=== PATIENT | male | born 2000 | race Hispanic/Latino ===

== ENCOUNTER 2019-10-04 11:07 | Emergency (ER) | payer MEDICAID, OTHER ==
[2019-10-04] MEDS ORDERED: ONDANSETRON HCL 4 MG/2 ML VIAL ONE (11:28)
[2019-10-04] MEDS ORDERED: SODIUM CHLORIDE 0.9% 1000ML 1,000 ML IV ONE ×2 (11:28→12:06)
[2019-10-04 11:35] LABS: BASOPHILS % (AUTO) 0.6 % (0.0-5.0); HEMATOCRIT 45.1 % (42-54); LYMPHOCYTES % (AUTO) 17.6 % (21.0-51.0); MEAN CORPUSCULAR HEMOGLOBIN 28.7 pg (27.0-33.0); MEAN CORPUSCULAR HGB CONC 33.9 g/dL (32.0-36.0); MEAN CORPUSCULAR VOLUME 84.6 fL (80-100); MONOCYTES % (AUTO) 6.4 % (3.0-13.0); NEUTROPHILS % (AUTO) 75.4 % (40.0-77.0); NUCLEATED RED BLOOD CELLS 0.1 % (0.0-0.19); PLATELET COUNT (AUTO) 129 K/uL (130-400); RED BLOOD CELL COUNT(AUTO) 5.33 MIL/uL (4.50-6.20); RED CELL DISTRIBUTION WIDTH 13.5 % (11.0-15.5); WHITE BLOOD COUNT (AUTO) 6.8 K/uL (4.8-10.8)
[2019-10-04 11:47] LABS: POTASSIUM 3.3 mmol/L (3.5-5.1)
[2019-10-04 11:52] LABS: ALBUMIN 3.4 g/dL (3.5-5.0); BILIRUBIN,TOTAL 0.4 mg/dL (0.2-1.0); TOTAL PROTEIN, SERUM 7.4 g/dL (6.0-8.3)
[2019-10-04 12:43] LABS: APPEARANCE,URINE Cloudy (CLEAR); BILIRUBIN,URINE Negative (NEGATIVE); COLOR,URINE Dark Yellow (YELLOW); GLUCOSE, URINE (UA) Negative (NEGATIVE); KETONES,URINE Trace mg/dL (NEGATIVE); LEUKOCYTE ESTERASE ,URINE Negative (NEGATIVE); NITRATE,URINE Negative (NEGATIVE); OCCULT BLOOD,URINE Negative (NEGATIVE); PH,URINE 5.5 (5.0-8.0); PROTEIN,URINE POS 1+ mg/dL (NEGATIVE)
[2019-10-04 13:17] LABS: BACTERIA,URINE Few /HPF (None Seen); MUCUS,URINE Moderate LPF (None Seen); RBC,URINE None Seen /HPF (0-1); SQUAMOUS EPITHELIAL CELL,UR Few /HPF (0-2); WBC,URINE None Seen /HPF (0-1)
== END 2019-10-04 13:44 | disposition home or self-care (01) ==
LOC: EDH 11:07
DX: E86.0 Dehydration (principal); K52.9 Noninfective gastroenteritis and colitis, unspecified; E87.6 Hypokalemia; Z90.49 Acquired absence of other specified parts of digestive tract; Z87.891 Personal history of nicotine dependence
CPT/HCPCS: 36415; 80053; 81001; 82150; 82270; 83630; 85025; 87046; 87177; 87804 ×2; 96361; 96374; 99285; J2405; J7030 ×2

== ENCOUNTER 2024-11-28 10:15 | Emergency (ER) | payer SELFPAY ==
[~2024-11-28] VITALS: Ht 172.7 cm; Wt 176.9 kg
[2024-11-28 11:23] LABS: APPEARANCE,URINE CLEAR (CLEAR); BILIRUBIN,URINE NEGATIVE (NEGATIVE); COLOR,URINE LIGHT-YELLOW (YELLOW); GLUCOSE, URINE (UA) >=1000 mg/dL (NEGATIVE); KETONES,URINE 10 mg/dL (NEGATIVE); LEUKOCYTE ESTERASE ,URINE 25 Leu/uL (NEGATIVE); NITRATE,URINE NEGATIVE (NEGATIVE); OCCULT BLOOD,URINE NEGATIVE (NEGATIVE); PROTEIN,URINE 10 mg/dL (NEGATIVE); UROBILINOGEN,URINE 0.2 mg/dL (0.2-1.0)
[2024-11-28] MEDS ORDERED: CLOT15CR23 TP (11:28)
[2024-11-28] MEDS ORDERED: MUPI22OI2 TP (11:28)
--- NOTE | 2024-11-28 11:28 | ERN ---
General Chief Complaint: Penis Problem Stated Complaint: ABCESS Time Seen by MD: 10:17 Time Seen by Midlevel: 10:17 Source: patient History of Present Illness Initial Comments Patient is a morbidly obese 24-year-old male presenting to the emergency department with swelling and redness to his penis that he noticed this morning after waking up. Denies any other symptoms at this time. Denies being sexually active. Denies any concern for sexually transmitted disease at this time. Home Meds Active Scripts Levofloxacin (Levaquin 750Mg Tabs) 750 Mg Tablet, 750 MG PO DAILY for 7 Days, #7 TAB 0 Refills Prov:ANGELITA FULTON 11/28/24 Mupirocin (Mupirocin Ointment) 2 % Oint, 1 APPL TP BID for 5 Days, #15 GM 0 Refills apply to affected area(s) Prov:ANGELITA FULTON 11/28/24 Clotrimazole (Clotrimazole) 1 % Cream..g., 1 APPL TP BID for 7 Days, #30 GM 0 Refills apply to affected area(s) Prov:ANGELITA FULTON 11/28/24 Past Medical History Past Medical History: No Pertinent History Past Surgical History: Appendectomy ROS Dictation CONSTITUTIONAL: Negative except for HPI HEAD/FACE: Negative except for HPI EENT: Negative except for HPI RESPIRATORY: Negative except for HPI GASTROINTESTINAL/ABDOMINAL: Negative except for HPI GENITOURINARY: Negative except for HPI MUSCULOSKELETAL: Negative except for HPI INTEGUMENTARY: Negative except for HPI NEUROLOGICAL/PSYCH: Negative except for HPI HEMATOLOGIC/LYMPHATIC: Negative except for HPI All Systems Negative, Except as noted above. 13 point review of systems assessed and all negative except for above. Physical Exam Physical Exam Dictation Vital Signs reviewed General Appearance: Alert, oriented x 3, no acute distress, well developed, nourished. Head and Face: non-traumatic. Eyes: PERRL, pink conjunctivas, eyelid no trauma, anterior chamber with arcus senilis. Ears: Pinnas intact and no signs of trauma or erythema ear canals clear and no discharge TM no erythema Nose: No discharge, no bleeding. Oropharynx: Mouth normal, tongue pink, pharynx clear,no erythema, tonsils no exudates, no abscesses noted, mucous membrane moist Neck: Supple, non-tender, no thyromegaly, no masses, no JVD, no bruits Breast:Deferred Chest:No tenderness, no crepitus, no paradoxical movement, no retractions Lungs:Clear, well-ventilated, symmetric, no rales, no wheezing, no rhonchi, no stridor, good breath sounds bilaterally Heart: Regular rate, regular rhythm, no murmur, no gallops Vascular: no peripheral edema, Abdomen: Soft, positive bowel sounds, nondistended, no guarding, nontender, no rebound, no masses no hepatomegaly, no splenomegaly, no Salomon's sign, no hernias. Rectal: Deferred Genital: Genital examination performed with RN at bedside. There is erythema to the glans of the penis Neurological: Normal speech, motor function intact, sensory function intact Musculoskeletal: Neck nontender, full range of motion, back nontender, full range of motion, Extremities: nontender, full range of motion Skin: Color pink, dry, no turgor, no rash, no lacerations, no abrasions, no contusions. Lymphatic: Deferred Results Laboratory and Microbiology Lab and Micro Result Laboratory Tests Test 11/28/24 10:51 Urine Color LIGHT-YELLOW (YELLOW) Urine Appearance CLEAR (CLEAR) Urine pH 6.0 (5.0-8.0) Urine Specific Given 1.037 (1.001-1.031) Urine Protein 10 mg/dL (NEGATIVE) H Urine Glucose (UA) >=1000 mg/dL (NEGATIVE) H Urine Ketones 10 mg/dL (NEGATIVE) H Urine Occult Blood NEGATIVE (NEGATIVE) Urine Nitrate NEGATIVE (NEGATIVE) Urine Bilirubin NEGATIVE mg/dL (NEGATIVE) Urine Urobilinogen 0.2 mg/dL (0.2-1.0) Urine Leukocyte Esterase 25 Chan/uL (NEGATIVE) H Urine RBC 2-5 /HPF (0-1) H Urine WBC 2-5 /HPF (0-1) H Urine Squamous Epithelial Cells FEW /HPF (0-2) Urine Bacteria RARE /HPF (None Seen) Labs Reviewed?: Yes MDM MDM: Differential diagnosis: Balanitis, urinary tract infection, sexually somers smitted disease There are no social concerns with this patient. Prescription drug management Prescriptions will include: Clotrimazole, mupirocin, Levaquin Medical management and examination interpretation discussions were had by me with other qualified healthcare professionals as indicated for the patient's care. ED Course Orders Procedure Category Date Status Time Urinalysis Profile LAB 11/28/24 Complete 10:44 Vital Signs Date Time Temp Pulse Resp B/P (MAP) Pulse Ox O2 Delivery O2 Flow Rate FiO2 11/28/24 10:26 99.7 66 20 112/74 99 Room Air 0 DX & DISP Disposition: Discharge Departure Impression: Primary Impression: Balanitis Additional Impression: Urinary tract infection Condition: Stable Scripts Levofloxacin (Levaquin 750Mg Tabs) 750 Mg Tablet 750 MG PO DAILY for 7 Days, #7 TAB 0 Refills Prov: ANGELITA FULTON 11/28/24 Mupirocin (Mupirocin Ointment) 2 % Oint 1 APPL TP BID for 5 Days, #15 GM 0 Refills apply to affected area(s) Prov: ANGELITA FULTON 11/28/24 Clotrimazole (Clotrimazole) 1 % Cream..g. 1 APPL TP BID for 7 Days, #30 GM 0 Refills apply to affected area(s) Prov: ANGELITA FULTON 11/28/24 Additional Instructions: Your urinalysis shows evidence of infection. I have given you a prescription for oral antibiotics for outpatient. Your urinalysis also shows sugar in your urine. This may indicate diabetes. Please follow up with your primary care doctor so they can rule out diabetes. I have given you a prescription for mupirocin and clotrimazole which should help improve your symptoms over the next couple of days. Follow up with your primary care doctor in 2-3 days for repeat evaluation. Return to the ER for any new or worsening symptoms Referrals: SELF,REFERRAL (PCP) I have reviewed the case, and I agree with, Diagnosis and Plan I performed the substantive portion of the visit. I have reviewed and personally made and approve the management plan that is documented in the note by myself or the KYLIE. I acknowledge for responsibility for the patient's managem ent plan. ANGELITA FULTON Nov 28, 2024 11:28
[2024-11-28 11:32] LABS: ADD UA MICROSCOPIC YES
[2024-11-28 11:34] LABS: BACTERIA,URINE RARE /HPF (None Seen); SQUAMOUS EPITHELIAL CELL,UR FEW /HPF (0-2)
[2024-11-28] MEDS ORDERED: LEVO750T68 PO (11:44)
[2024-11-28 11:58] VITALS: BP 118/72; PULSE 68; RESP 18; TEMP 99; O2SAT 98
== END 2024-11-28 12:10 | disposition home or self-care (01) ==
LOC: EDH 10:15
DX: N48.1 Balanitis (principal); N39.0 Urinary tract infection, site not specified; E66.01 Morbid (severe) obesity due to excess calories; Z90.49 Acquired absence of other specified parts of digestive tract; Z68.43 Body mass index [BMI] 50.0-59.9, adult; Z79.899 Other long term (current) drug therapy
CPT/HCPCS: 81001; 99283

== ENCOUNTER 2025-01-30 12:28 | Emergency (ER) | payer SELFPAY ==
[~2025-01-30] VITALS: Ht 167.6 cm; Wt 146.1 kg
[~2025-01-30 12:28] MED LIST: CLOT15CR23 TP; LEVO750T68 PO; MUPI22OI2 TP
[2025-01-30] MEDS ORDERED: CLIN-141 PO (12:37)
[2025-01-30] MEDS ORDERED: IBUP-2077 PO (12:37)
--- NOTE | 2025-01-30 12:38 | ERN ---
ED Note History of Present Illness Stated Complaint: ABSCESS Chief Complaint: Abscess Time Seen by MD: 12:30 Dictation: PATIENT IS A 24-YEAR-OLD MALE HERE WITH COMPLAINTS OF PAINFUL ERYTHEMA WITH TENDERNESS TO THE LEFT LATERAL CHEST AREA ONSET THREE DAYS PRIOR TO ARRIVAL NO FEVER NO CHILLS NO NAUSEA VOMITING. DENIES HISTORY OF DIABETES DOES NOT HAVE A PRIMARY CARE DOCTOR AND HAS TAKEN NOTHING TODAY PRIOR TO ARRIVAL FOR PAIN Allergies: Coded Allergies: No Known Allergies (Unverified Allergy, Unknown, 01/30/25) Home Meds Active Scripts Levofloxacin (Levaquin 750Mg Tabs) 750 Mg Tablet, 750 MG PO DAILY for 7 Days, #7 TAB 0 Refills Prov:ANGELITA FULTON 11/28/24 Mupirocin (Mupirocin Ointment) 2 % Oint, 1 APPL TP BID for 5 Days, #15 GM 0 Refills apply to affected area(s) Prov:ANGELITA FULTON 11/28/24 Clotrimazole (Clotrimazole) 1 % Cream..g., 1 APPL TP BID for 7 Days, #30 GM 0 Refills apply to affected area(s) Prov:ANGELITA FULTON 11/28/24 Past Medical History Past Medical History: No Pertinent History Surgical History: Appendectomy RN Note Reviewed/Agreed w/PFSH: Yes Review of System Dictation CONSTITUTIONAL: NEGATIVE EXCEPT FOR HPI HEAD/FACE: NEGATIVE EXCEPT FOR HPI EENT: NEGATIVE EXCEPT FOR HPI RESPIRATORY: NEGATIVE EXCEPT FOR HPI GASTROINTESTINAL/ABDOMINAL: NEGATIVE EXCEPT FOR HPI GENITOURINARY: NEGATIVE EXCEPT FOR HPI MUSCULOSKELETAL: NEGATIVE EXCEPT FOR HPI INTEGUMENTARY: NEGATIVE EXCEPT FOR HPI ERYTHEMA SWELLING TO LEFT LATERAL CHEST NEUROLOGICAL/PSYCH: NEGATIVE EXCEPT FOR HPI HEMATOLOGIC/LYMPHATIC: NEGATIVE EXCEPT FOR HPI ALL SYSTEMS NEGATIVE, EXCEPT NOTED ABOVE. 13 POINT REVIEW OF SYSTEMS ASSESSED AND ALL NEGATIVE EXCEPT FOR ABOVE. Physical Exam Dictation VITAL SIGNS REVIEWED GENERAL APPEARANCE: ALERT, ORIENTED X 3, MILD ACUTE DISTRESS, WELL DEVELOPED, NOURISHED. MORBIDLY OBESE HEAD AND FACE: NON-TRAUMATIC. EYES: PERRL, PINK CONJUNCTIVAS, EYELID NO TRAUMA, ANTERIOR CHAMBER WITH ARCUS SENILIS. EARS: PINNAS INTACT AND NO SIGNS OF TRAUMA OR ERYTHEMA EAR CANALS CLEAR AND NO DISCHARGE TM NO ERYTHEMA NOSE: NO DISCHARGE, NO BLEEDING. OROPHARYNX: MOUTH NORMAL, TONGUE PINK, PHARYNX CLEAR,NO ERYTHEMA, TONSILS NO EXUDATES, NO ABSCESSES NOTED, MUCOUS MEMBRANE MOIST NECK: SUPPLE, NON-TENDER, NO THYROMEGALY, NO MASSES, NO JVD, NO BRUITS BREAST:DEFERRED CHEST:NO TENDERNESS, NO CREPITUS, NO PARADOXICAL MOVEMENT, NO RETRACTIONS LUNGS:CLEAR, WELL-VENTILATED, SYMMETRIC, NO RALES, NO WHEEZING, NO RHONCHI, NO STRIDOR, GOOD BREATH SOUNDS BILATERALLY HEART: REGULAR RATE, REGULAR RHYTHM, NO MURMUR, NO GALLOPS VASCULAR: NO PERIPHERAL EDEMA, ABDOMEN: SOFT, POSITIVE BOWEL SOUNDS, NONDISTENDED, NO GUARDING, NONTENDER, NO REBOUND, NO MASSES NO HEPATOMEGALY, NO SPLENOMEGALY, NO HEREDIA'S SIGN, NO HERNIAS. RECTAL: DEFERRED GENITAL: DEFERRED NEUROLOGICAL: NORMAL SPEECH, MOTOR FUNCTION INTACT, SENSORY FUNCTION INTACT MUSCULOSKELETAL: NECK NONTENDER, FULL RANGE OF MOTION, BACK NONTENDER, FULL RANGE OF MOTION, EXTREMITIES: NONTENDER, FULL RANGE OF MOTION SKIN: COLOR PINK, ERYTHEMA TENDERNESS TO LEFT LATERAL CHEST AREA. NO FLUCTUANCE NO INDURATION NO DRAINAGE LYMPHATIC: DEFERRED Results (Laboratory/Radiology) Labs Reviewed?: Yes ED Course ED Course Orders Procedure Category Date Status Time Clindamycin 150mg Cap PHA 01/30/25 Verified (Cleocin 150mg Cap 13:00 Ibuprofen 800 Mg Tab PHA 01/30/25 Verified (Motrin) 13:00 1232/NO LABS OR IMAGING INDICATED. WE WILL INITIATE CLINDAMYCIN AND HAVE PATIENT AND REFER PATIENT TO GENERAL SURGEON NEXT SEVERAL Medical Decision Making MDM MEDICAL DECISION-MAKING BASED ON EMPIRIC TREATMENT FOR CELLULITIS. CLINDAMYCIN AND IBUPROFEN INITIATED DISCHARGED HOME WITH WARM COMPRESS INFORMATION AND CLINDAMYCIN GIVEN THE NAME OF DR. ARIS HERRING TO FOLLOW UP IF NEEDED IN THE NEXT SEVERAL DAYS DX & DISP Disposition: Discharge Departure Impression: Primary Impression: Cellulitis of chest wall Condition: Stable Scripts Ibuprofen (Ibuprofen 800 mg Tab) 800 Mg Tab 800 MG PO Q8H PRN for fever or pain, #30 TAB 0 Refills Prov: JOAO GILES FILM WASHER 01/30/25 Clindamycin HCl (Clindamycin HCl) 300 Mg Capsule 1 CAP PO QID for 10 Days, #40 CAP 0 Refills Prov: JOAO GILES FILM WASHER 01/30/25 Additional Instructions: FOLLOW-UP WITH PRIMARY CARE PROVIDER IN 1 TO 2 DAYS. TAKE MEDICATIONS DI RECTED HERE IN THE EMERGENCY ROOM. OKAY TO CONTINUE HOME MEDICATIONS UNLESS OTHERWISE DISCUSSED DURING YOUR VISIT IN THE EMERGENCY ROOM TODAY. RETURN TO YOUR NEAREST EMERGENCY ROOM IF SYMPTOMS WORSEN OR IF THERE IS NO IMPROVEMENT. CALL 911 IF YOU NEED IMMEDIATE ASSISTANCE. TAKE TYLENOL OR MOTRIN [id number] NEEDED AND IF NO CONTRAINDICATIONS ARE PRESENT. INCREASE ORAL HYDRATION. A WOUND CULTURE OR URINE CULTURE WAS ORDERED HERE IN THE EMERGENCY ROOM DEPARTMENT PLEASE FOLLOW-UP WITH PRIMARY CARE PROVIDER AND ADVISE THEM TO GET REPEAT PORTS FROM OUR FACILITY. IF YOU HAD ANY ISAIAS WRAP/SPLINTS THAT WERE APPLIED HERE, PLEASE DO NOT REMOVE THEM UNTIL YOU SEE YOUR PRIMARY CARE OR SPECIALTY. WARM COMPRESSES TO REDNESS TO CHEST THREE TO 4 TIMES A DAY. TAKE ANTIBIOTICS DIRECTED UNTIL GONE. CALL SURGEON FOR AN APPOINTMENT IN THE NEXT 3-4 DAYS IF GETS WORSE. Referrals: SELF,REFERRAL (PCP) ARIS HERRING MD Time of Disposition: 12:36 I have reviewed the case, and I agree with, Diagnosis and Plan JOAO GILES NP Jan 30, 2025 12:38
[2025-01-30] MEDS: CLINDAMYCIN 150 MG CAP PO ONE (12:58)
[2025-01-30] MEDS: ibuPROFEN 800 MG TAB PO ONE (13:01)
[2025-01-30 13:04] VITALS: BP 149/97; PULSE 87; RESP 16; TEMP 98.1; O2SAT 96
== END 2025-01-30 13:11 | disposition home or self-care (01) ==
LOC: EDH 12:28
DX: L03.313 Cellulitis of chest wall (principal); Z90.49 Acquired absence of other specified parts of digestive tract; Z79.899 Other long term (current) drug therapy
CPT/HCPCS: 99283